=== PATIENT | male | born 1940 | race Caucasian/White ===

== ENCOUNTER 2018-09-09 10:59 | Inpatient (IN) ==
[2018-09-09] MEDS ORDERED: Sodium Chlor 0.9% Inj 500 ML IV.SIG SCH (12:00)
--- NOTE | 2018-09-09 12:21 | ED ---
HPI General Chief Complaint: Fall Stated Complaint: Dr sent/Fall Time Seen by Provider: 09/09/18 11:38 Source: patient and family Mode of arrival: wheelchair Limitations: physical limitation and other (Lewy body dementia, Parkinson's disease) History of Present Illness HPI Narrative: 78-year-old male presents to the emergency department at the recommendation of his primary care physician, Dr. Reed. Patient currently lives in a memory care unit at [facility]. She states that the facility staff saw that patient slid on the floor today after getting out of bed. They deny any significant trauma but states that patient was seen yesterday and treated for an elbow fracture. According to , Areli, she states that Dr. Mckeon recommended he come into the emergency department to determine what treatment should be done for his elbow as general anesthesia may not be an option secondary to his dementia and Parkinson's disease. Areli states that patient has an appointment to see Dr. Galvan, orthopedics tomorrow. Upon my evaluation, patient is not easily arousable but does not appear altered. Areli states that patient had a medication to help him sleep last night and he continues to be lethargic today but does not appear to be in distress according to her. She states that patient is also not complained of any other pain and says his pain is focused in his right elbow. MD complaint: Reports fall Onset (ago): minute(s) Fall from: standing and out of bed Fall witnessed: no Related Data Home Medications Medication Instructions Recorded Confirmed alfuzosin 10 mg PO DAILY 07/30/18 09/09/18 carbidopa-levodopa 1 tab PO DAILY 07/30/18 09/09/18 cyanocobalamin (vitamin B-12) 1 tab PO DAILY 07/30/18 09/09/18 [Vitamin B-12] furosemide 20 mg PO DAILY 07/30/18 09/09/18 glucosamine sulfate [Glucosamine] 2,000 mg PO DAILY 07/30/18 09/09/18 isosorbide dinitrate 1 tab PO BID 07/30/18 09/09/18 lamotrigine 200 mg PO DAILY 07/30/18 09/09/18 modafinil 200 mg PO DAILY 07/30/18 09/09/18 multivitamin with minerals 1 tab PO DAILY 07/30/18 09/09/18 omeprazole 40 mg PO DAILY 07/30/18 09/09/18 potassium chloride 10 meq PO DAILY 07/30/18 09/09/18 rivaroxaban [Xarelto] 20 mg PO QPM 07/30/18 09/09/18 rivastigmine 4.6 mg TRANSDERMAL DAILY 07/30/18 09/09/18 simvastatin 40 mg PO QPM 07/30/18 09/09/18 turmeric root extract 500 mg PO BID 07/30/18 09/09/18 quetiapine 100 mg PO DAILY 09/02/18 09/09/18 quetiapine 150 mg PO HS 09/02/18 09/09/18 ciprofloxacin HCl [Cipro] 500 mg PO BID 09/08/18 09/09/18 Allergies Allergy/AdvReac Type Severity Reaction Status Date / Time epinephrine Allergy Severe Respiratory Verified 09/08/18 12:21 Failure lidocaine Allergy Intermediate INCREASED Verified 09/08/18 12:21 HEART RATE Sulfa (Sulfonamide Allergy Unknown RASH Verified 09/08/18 12:21 Antibiotics) Review of Systems ROS: all other systems reviewed are negative [facility] Medical History Medical History Afib (Acute) CAD (coronary artery disease) (Acute) Epilepsy (Acute) GERD (gastroesophageal reflux disease) (Acute) Heart attack (Acute) Lewy body dementia (Acute) Parkinson disease (Acute) Sleep apnea (Acute) Surgical History Surgical History History of inguinal hernia repair (Acute) Stented coronary artery (Acute) Family History Family History Father Family history of hypertension Mother Family history of hypertension Mother Dementia Social History Social History Substance History: No History of Abuse Second Hand Smoke Exposure: No Smoking Status: Former smoker Tobacco Type: Cigarettes How Often Do You Have a Drink Containing Alcohol: Never Recent Travel in [place] within the Last 8 Weeks: No Recent Out of Country Travel within the Last 8 Weeks: No Immunization History Tetanus Immunization: Unsure Exam Narrative Exam Narrative: GENERAL: Well-developed, well-nourished in no acute distress, sleeping upon my evaluation SKIN: Focused skin assessment warm/dry. HEAD: Atraumatic. Normocephalic. EYES: Pupils equal and round. No scleral icterus. No injection or drainage. Ecchymosis present over the left orbit, presents yesterday after a fall according to ENT: No nasal bleeding or discharge. Mucous membranes pink and moist. NECK: Trachea midline. No JVD. No midline tenderness CARDIOVASCULAR: Regular rate and rhythm. No murmur appreciated. RESPIRATORY: No accessory muscle use. Clear to auscultation. Breath sounds equal bilaterally. GASTROINTESTINAL: Abdomen soft, non-tender, nondistended. Hepatic and splenic margins not palpable. MUSCULOSKELETAL: No obvious deformities. No clubbing. No cyanosis. No edema. No tenderness palpation of the pelvis, pelvis stable, no obvious trauma to the left upper extremity or bilateral lower extremities. Right upper extremity in splint (placed yesterday), cap refill less than 2 seconds right hand NEUROLOGICAL: Awake and alert. No obvious cranial nerve deficits. Motor grossly within normal limits. Normal speech. PSYCHIATRIC: Appropriate mood and affect; insight and judgment normal. Course Initial Documented Vital Signs Temperature 97.8 F 09/09/18 11:10 Pulse Rate 89 09/09/18 11:10 Respiratory Rate 16 09/09/18 11:10 Blood Pressure 94/55 L 09/09/18 11:10 Pulse Oximetry 94 L 09/09/18 11:10 Last Documented Vital Signs Temperature 97.8 F 09/09/18 11:10 Pulse Rate 86 09/09/18 16:44 Respiratory Rate 18 09/09/18 16:44 Blood Pressure 108/68 09/09/18 16:44 Pulse Oximetry 94 L 09/09/18 11:10 Medical Decision Making MDM Narrative Medical decision making narrative: 78-year-old male presents to the emergency department for evaluation at the recommendation of Dr. Reed, his primary care physician at his assisted living facility. He recommended patient come in as patient did have a another fall today and there was concern for repeated falls. states patient has not had his Xarelto in 2 days because of the repeated falls. He was diagnosed with a right elbow fracture yesterday and is due to be evaluated by Dr. Galvan tomorrow. There is concern for general anesthesia because of his Lewy body dementia and Parkinson's disease. Because of his unwitnessed fall, ordered repeat head CT and cervical spine CT. There is no evidence of trauma or pain elsewhere according to patient. Labs and imaging studies stable. Will Discuss this case with case management. Discussed with Case management, , and orthopedic physician. Dr. Galvan would like patient off of Xarelto for 5 days prior to performing surgery and probably perform next . states patient is due to have an appointment tomorrow with Dr. Galvan for consult. I spoke with Dr. Galvan regarding the plan to admit this patient for frequent falls and weakness and he said he would discuss this with his office staff and have them contact patient. I spoke with Dr. Rodriguez who agreed to the admission. Medical Screen Exam Complete: Yes Emergency Medical Condition: Yes Differential Diagnosis Differential Diagnosis: Right elbow fracture, fall, generalized weakness, deconditioning Lab Data Result diagrams: 09/09/18 12:10 09/09/18 12:10 Lab Results 09/09/18 09/09/18 09/09/18 Range/Units 12:10 12:10 12:10 WBC 6.7 (4.0-11.0) th/mm3 RBC 4.36 L (4.50-5.90) mil/mm3 Hgb 13.3 (13.0-17.0) gm/dL Hct 39.8 (39.0-51.0) % MCV 91.2 (80.0-100.0) fL MCH 30.5 (27.0-34.0) pg MCHC 33.4 (32.0-36.0) % RDW 13.8 (11.6-17.2) % Plt Count 121 L (150-450) th/mm3 MPV 6.7 L (7.0-11.0) fL Neut % (Auto) 68.8 (16.0-70.0) % Lymph % (Auto) 12.2 (9.0-44.0) % [place] % (Auto) 14.2 H (0.0-8.0) % Eos % (Auto) 4.4 H (0.0-4.0) % Baso % (Auto) 0.4 (0.0-2.0) % Neut # (Auto) 4.6 (1.8-7.7) th/mm3 Lymph # (Auto) 0.8 L (1.0-4.8) th/mm3 [place] # (Auto) 0.9 (0.0-0.9) th/mm3 Eos # (Auto) 0.3 (0.0-0.4) th/mm3 Baso # (Auto) 0.0 (0.0-0.2) th/mm3 WBC Differential . Differential Comment Auto diff final PT 12.9 H (9.8-11.6) sec INR 1.3 Ratio APTT 32.7 H (24.3-30.1) sec Sodium 143 (136-145) meq/L Potassium 3.6 (3.5-5.1) meq/L Chloride 106 (98-107) meq/L Carbon Dioxide 29.3 (21.0-32.0) meq/L Anion Gap 8 (5-15) meq/L BUN 19 H (7-18) mg/dL Creatinine 1.56 H (0.60-1.30) mg/dL Estimated GFR 43 L (>89) mL/min Random Glucose 128 H (74-106) mg/dL Calcium 8.7 (8.5-10.1) mg/dL Total Bilirubin 1.1 H (0.2-1.0) mg/dL AST 18 (15-37) U/L ALT 10 L (12-78) U/L Alkaline Phosphatase 95 (45-117) U/L Total Protein 7.2 (6.4-8.2) g/dL Albumin 3.6 (3.4-5.0) g/dL Urine Color (Yellw/Straw) Urine Clarity (Clear) Urine pH (5.0-8.5) Ur Specific [place] (1.002-1.035) Urine Protein (Neg-Trace) mg/dL Urine Glucose (UA) (Negative) mg/dL Urine Ketones (Negative) mg/dL Urine Occult Blood (Negative) Urine Nitrate (Negative) Urine Bilirubin (Negative) Urine Urobilinogen (Less than 2) mg/dL Ur Leukocyte Esterase (Negative) Urine WBC (0-5) /hpf Ur Squamous Epith Cells (0-5) /hpf Hyaline Casts (0-3) /lpf Urine Mucus (Occasional) /lpf Micro UA Comment Ur Microscopic Review Urine Culture Comments 09/09/18 Range/Units 15:45 WBC (4.0-11.0) th/mm3 RBC (4.50-5.90) mil/mm3 Hgb (13.0-17.0) gm/dL Hct (39.0-51.0) % MCV (80.0-100.0) fL MCH (27.0-34.0) pg MCHC (32.0-36.0) % RDW (11.6-17.2) % Plt Count (150-450) th/mm3 MPV (7.0-11.0) fL Neut % (Auto) (16.0-70.0) % Lymph % (Auto) (9.0-44.0) % [place] % (Auto) (0.0-8.0) % Eos % (Auto) (0.0-4.0) % Baso % (Auto) (0.0-2.0) % Neut # (Auto) (1.8-7.7) th/mm3 Lymph # (Auto) (1.0-4.8) th/mm3 [place] # (Auto) (0.0-0.9) th/mm3 Eos # (Auto) (0.0-0.4) th/mm3 Baso # (Auto) (0.0-0.2) th/mm3 WBC Differential Differential Comment PT (9.8-11.6) sec INR Ratio APTT (24.3-30.1) sec Sodium (136-145) meq/L Potassium (3.5-5.1) meq/L Chloride (98-107) meq/L Carbon Dioxide (21.0-32.0) meq/L Anion Gap (5-15) meq/L BUN (7-18) mg/dL Creatinine (0.60-1.30) mg/dL Estimated GFR (>89) mL/min Random Glucose (74-106) mg/dL Calcium (8.5-10.1) mg/dL Total Bilirubin (0.2-1.0) mg/dL AST (15-37) U/L ALT (12-78) U/L Alkaline Phosphatase (45-117) U/L Total Protein (6.4-8.2) g/dL Albumin (3.4-5.0) g/dL Urine Color Yellow (Yellw/Straw) Urine Clarity Hazy H (Clear) Urine pH 5.0 (5.0-8.5) Ur Specific [place] 1.018 (1.002-1.035) Urine Protein Negative (Neg-Trace) mg/dL Urine Glucose (UA) Negative (Negative) mg/dL Urine Ketones Negative (Negative) mg/dL Urine Occult Blood Negative (Negative) Urine Nitrate Negative (Negative) Urine Bilirubin Negative (Negative) Urine Urobilinogen Less than 2 (Less than 2) mg/dL Ur Leukocyte Esterase Negative (Negative) Urine WBC Less than 1 (0-5) /hpf Ur Squamous Epith Cells <1 (0-5) /hpf Hyaline Casts 4 (0-3) /lpf Urine Mucus Many H (Occasional) /lpf Micro UA Comment Cath-culture not ind Ur Microscopic Review Not Reportable Urine Culture Comments Cath-cult not ind Imaging Data Radiologist's impression: Cervical Spine CT 09/09/18 12:21 CONCLUSION: 1. No acute fracture or subluxation. 2. 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 3. Bulky carotid plaque. Head CT 09/09/18 12:21 CONCLUSION: 1. Stable senescent changes without acute intracranial abnormality. . Discharge Plan Discharge Disposition Patient Disposition: 30 Still Patient Discharge Condition Condition: Stable Discharge Details Diagnosis: Falls frequently, Weakness, Closed fracture of right elbow Physicians Team ED Provider: Titus Frankel ED Midlevel Provider: Noemi Pelayo Primary Care Provider: Deejay Mckeon Attending Provider: Itzel Rodriguez Other Providers: Felicia Smyth Status ED Status: Left Department Discharge Information Discharge Date/Time: 09/09/18 19:17
[2018-09-09 12:22] LABS: Baso % (Auto) 0.4 % (0.0-2.0); Eos # (Auto) 0.3 th/mm3 (0.0-0.4); Eos % (Auto) 4.4 % (0.0-4.0); Hematocrit 39.8 % (39.0-51.0); Hemoglobin 13.3 gm/dL (13.0-17.0); Lymph # (Auto) 0.8 th/mm3 (1.0-4.8); Lymph % (Auto) 12.2 % (9.0-44.0); Mean Corpuscular HGB Conc 33.4 % (32.0-36.0); Mean Corpuscular Hemoglobin 30.5 pg (27.0-34.0); Mean Corpuscular Volume 91.2 fL (80.0-100.0); Mean Platelet Volume 6.7 fL (7.0-11.0); Mono # (Auto) 0.9 th/mm3 (0.0-0.9); Mono % (Auto) 14.2 % (0.0-8.0); Neut # (Auto) 4.6 th/mm3 (1.8-7.7); Neut % (Auto) 68.8 % (16.0-70.0); Platelet Count 121 th/mm3 (150-450); Red Blood Count 4.36 mil/mm3 (4.50-5.90); Red Cell Distribution Width 13.8 % (11.6-17.2); White Blood Count 6.7 th/mm3 (4.0-11.0)
[2018-09-09 12:33] LABS: Activated Partial Thrombo Time 32.7 sec (24.3-30.1); INR 1.3 Ratio; Prothrombin Time 12.9 sec (9.8-11.6)
[2018-09-09 12:43] LABS: Albumin 3.6 g/dL (3.4-5.0); Anion Gap 8 meq/L (5-15); Aspartate Aminotransferase 18 U/L (15-37); Blood Urea Nitrogen 19 mg/dL (7-18); Calcium 8.7 mg/dL (8.5-10.1); Carbon Dioxide 29.3 meq/L (21.0-32.0); Chloride 106 meq/L (98-107); Glomerular Filtration Rate 43 mL/min (>89); Glucose,Random 128 mg/dL (74-106); Potassium 3.6 meq/L (3.5-5.1); Sodium 143 meq/L (136-145)
[2018-09-09 12:49] LABS: Alanine Aminotransferase 10 U/L (12-78); Alkaline Phosphatase 95 U/L (45-117); Total Protein 7.2 g/dL (6.4-8.2)
--- NOTE | 2018-09-09 14:13 | CT ---
EXAM DATE: 09/09/2018 1:42 PM EDT AGE/SEX: 78 years / Male INDICATIONS: Trauma, multiple falls. CLINICAL DATA: This is the patient's initial encounter. Patient reports that signs and symptoms have been present for 1 day and indicates a pain score of 0/10. MEDICAL/SURGICAL HISTORY: None. None. RADIATION DOSE: 41.25 CTDI (mGy) COMPARISON: [facility], CT HEAD W/O CONTRAST, 09/08/2018. . TECHNIQUE: CT of the head without contrast. Using automated exposure control and adjustment of the mA and/or kV according to patient size, radiation dose was kept as low as reasonably achievable to ob tain optimal diagnostic quality images. DICOM format image data is available electronically for revi ew and comparison. FINDINGS: Cerebrum: Moderate diffuse cerebral atrophy. The ventricles are normal for degree of atrophy. Mild p eriventricular white matter hypodensities. Small focal left subinsular hypodensity likely reflecting a remote lacunar infarct. No evidence of midline shift, mass lesion, hemorrhage or acute infarction. No extraaxial fluid collections are seen. Posterior Fossa: The cerebellum and brainstem are intact. The 4th ventricle is midline. The cerebe llopontine angle is unremarkable. Extracranial: The visualized portion of the orbits is intact. Skull: The calvaria is intact. No evidence of skull fracture. CONCLUSION: 1. Stable senescent changes without acute intracranial abnormality. . Electronically signed by: Boston Perla MD 09/09/2018 2:12 PM EDT
--- NOTE | 2018-09-09 14:15 | CT ---
EXAM DATE: 09/09/2018 1:57 PM EDT AGE/SEX: 78 years / Male INDICATIONS: Trauma, multiple falls. CLINICAL DATA: This is the patient's initial encounter. Patient reports that signs and symptoms have been present for 1 day and indicates a pain score of 0/10. MEDICAL/SURGICAL HISTORY: None. None. RADIATION DOSE: 23.20 CTDI (mGy) COMPARISON: [facility], CT CERVICAL SPINE W/O CONTRAST, 09/08/2018. . TECHNIQUE: Contiguous axial images were obtained using helical multirow detector technique. The vol umetric data was post-processed with multiplanar reconstruction in oblique axial, sagittal, and coron al planes. Using automated exposure control and adjustment of the mA and/or kV according to patient s ize, radiation dose was kept as low as reasonably achievable to obtain optimal diagnostic quality marylu ges. DICOM format image data is available electronically for review and comparison. FINDINGS: OSSEOUS STRUCTURES: Bony fusion of C2-3. Vertebral body heights are maintained. Osseous structures ar e intact without evidence for acute bony fracture. Dens is intact. ALIGNMENT: Sagittal alignment is maintained. There is a normal C1-2 relationship. Facets are normally aligned. SOFT TISSUES: There is no significant prevertebral soft tissue hematoma. No significant cervical mitchell opathy or gross mass. The thyroid appears unremarkable. Visualized lung apices are clear without pneu mothorax. Bulky carotid calcifications. ADDITIONAL FINDINGS: Advanced multilevel degenerative spondylosis most prominently at C5-6 and C6-7. Multilevel facet arthropathy. No significant bony neural foraminal or central canal narrowing. Multil evel facet arthrosis. CONCLUSION: 1. No acute fracture or subluxation. 2. 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 3. Bulky carotid plaque. Electronically signed by: Boston Perla MD 09/09/2018 2:14 PM EDT
[2018-09-09 16:24] LABS: Bilirubin,Urine Negative (Negative); Clarity,Urine Hazy (Clear); Color,Urine Yellow (Yellw/Straw); Glucose,Urine (UA) Negative (Negative); Hyaline Casts,Urine 4 /lpf (0-3); Leukocyte Esterase,Urine Negative (Negative); Mucus,Urine Many /lpf (Occasional); Nitrite,Urine Negative (Negative); Specific Gravity,Urine 1.018 (1.002-1.035); Squamous Epithelial Cell,Urine <1 /hpf (0-5)
[2018-09-09] MEDS ORDERED: Bisacodyl 10 MG Supp RECTAL PRN (17:22)
--- NOTE | 2018-09-09 17:23 | P.HPIM ---
History of Present Illness Primary Care Physician: Deejay Mckeon MD Chief Complaint: Right elbow pain History of Present Illness: 78-year-old pleasant male with a history of Lewy body dementia, Parkinson's who is currently residing in a dementia base of the assisted-living facility we presented back to the emergency room after sustaining another fall last night and this morning when he was seen in the emergency room yesterday for right elbow fracture. He was referred to Dr. Galvan, orthopedic surgery, for an appointment tomorrow and likely surgery next . He has been on Xarelto for his chronic atrial fibrillation but has been off of this for the past 2 days after the fall. His had stated that the staff at the assisted living facility is unable to care for him due to these recurrent falls and therefore brought him back to the emergency room for evaluation. His stated that his Parkinson dementia has been progressing over the past few months. Patient currently is pleasantly confused and states that other than the right elbow pain he has no other pain at this time. No complaints of palpitations or chest pains. Review of Systems unobtainable due to mental condition PMFSH - History History Provided By: Family Member - Medical History Medical History: Medical History (Last Reviewed 09/09/18 @ 16:53 by Itzel Rodriguez MD) Afib CAD (coronary artery disease) Epilepsy GERD (gastroesophageal reflux disease) Heart attack Lewy body dementia Parkinson disease Sleep apnea - Surgical History Surgical History: Surgical History (Last Updated 09/09/18 @ 16:54 by Itzel Rodriguez MD) History of inguinal hernia repair Stented coronary artery - Family History Family History: Family History (Last Updated 09/09/18 @ 16:58 by Itzel Rodriguez MD) Father Family history of hypertension Mother Family history of hypertension Mother Dementia - Social History I have reviewed the patient's Social History: Yes - Tobacco History Second Hand Smoke Exposure: No Smoking Status: Never smoker Tobacco Type: Cigarettes - Alcohol History How Often Do You Have a Drink Containing Alcohol: Never - Substance Use History Substance History: No History of Abuse - Travel History Recent Travel in the [place] Within the Last 8 Weeks: No Recent Travel Out of the Country Within the Last 8 Weeks: No - Immunization History Tetanus Immunization: Unsure Medications and Allergies Active Medications: Active Medications Sodium Chloride (Ns Inj) 500 mls @ 0 mls/hr IV.SIG BOLUS CARLOS Allergies Allergy/AdvReac Type Severity Reaction Status Date / Time epinephrine Allergy Severe Respiratory Verified 09/08/18 12:21 Failure lidocaine Allergy Intermediate INCREASED Verified 09/08/18 12:21 HEART RATE Sulfa (Sulfonamide Allergy Unknown RASH Verified 09/08/18 12:21 Antibiotics) Home Medications Medication Instructions Recorded Confirmed Type alfuzosin 10 mg PO DAILY 07/30/18 09/09/18 History carbidopa-levodopa 1 tab PO DAILY 07/30/18 09/09/18 History cyanocobalamin (vitamin B-12) 1 tab PO DAILY 07/30/18 09/09/18 History [Vitamin B-12] furosemide 20 mg PO DAILY 07/30/18 09/09/18 History glucosamine sulfate [Glucosamine] 2,000 mg PO DAILY 07/30/18 09/09/18 History isosorbide dinitrate 1 tab PO BID 07/30/18 09/09/18 History lamotrigine 200 mg PO DAILY 07/30/18 09/09/18 History modafinil 200 mg PO DAILY 07/30/18 09/09/18 History multivitamin with minerals 1 tab PO DAILY 07/30/18 09/09/18 History omeprazole 40 mg PO DAILY 07/30/18 09/09/18 History potassium chloride 10 meq PO DAILY 07/30/18 09/09/18 History rivaroxaban [Xarelto] 20 mg PO QPM 07/30/18 09/09/18 History rivastigmine 4.6 mg TRANSDERMAL DAILY 07/30/18 09/09/18 History simvastatin 40 mg PO QPM 07/30/18 09/09/18 History turmeric root extract 500 mg PO BID 07/30/18 09/09/18 History quetiapine 100 mg PO DAILY 09/02/18 09/09/18 History quetiapine 150 mg PO HS 09/02/18 09/09/18 History ciprofloxacin HCl [Cipro] 500 mg PO BID 09/08/18 09/09/18 History Exam Vital signs: Vital Signs 09/09/18 11:10 09/09/18 16:44 Temperature 97.8 F Pulse Rate 89 86 Respiratory Rate 16 18 Blood Pressure 94/55 L 108/68 Pulse Oximetry 94 L Intake & Output 09/08/18 09/09/18 09/09/18 18:59 06:59 18:59 Weight 104.326 kg Narrative: GENERAL: Well-nourished well-developed pleasant male in no acute distress SKIN: Warm and dry. Right periorbital ecchymosis HEAD: Atraumatic. Normocephalic. EYES: Pupils equal and round. No scleral icterus. No injection or drainage. ENT: No nasal bleeding or discharge. Mucous membranes pink and moist. NECK: Trachea midline. No JVD. CARDIOVASCULAR: Irregular rate and rhythm. RESPIRATORY: No accessory muscle use. Clear to auscultation. Breath sounds equal bilaterally. GASTROINTESTINAL: Abdomen soft, non-tender, nondistended. Hepatic and splenic margins not palpable. Normoactive bowel sounds MUSCULOSKELETAL: Extremities without clubbing, cyanosis, or edema. No obvious deformities. NEUROLOGICAL: Awake and alert to person and place only but not to time or situation. No obvious cranial nerve deficits. Motor grossly within normal limits. Five out of 5 muscle strength in the arms and legs. Mild muffled speech PSYCHIATRIC: Appropriate mood and affect; Results - Labs CBC & Chem 7: 09/09/18 12:10 09/09/18 12:10 Labs: Short CBC 09/09/18 Range/Units 12:10 WBC 6.7 (4.0-11.0) th/mm3 Hgb 13.3 (13.0-17.0) gm/dL Hct 39.8 (39.0-51.0) % Plt Count 121 L (150-450) th/mm3 BMP 09/09/18 12:10 Sodium 143 Potassium 3.6 Chloride 106 Carbon Dioxide 29.3 BUN 19 H Creatinine 1.56 H Calcium 8.7 Liver Function 09/09/18 Range/Units 12:10 Total Bilirubin 1.1 H (0.2-1.0) mg/dL AST 18 (15-37) U/L ALT 10 L (12-78) U/L Alkaline Phosphatase 95 (45-117) U/L Albumin 3.6 (3.4-5.0) g/dL Urine 09/09/18 Range/Units 15:45 Urine Color Yellow (Yellw/Straw) Urine Clarity Hazy H (Clear) Urine pH 5.0 (5.0-8.5) Ur Specific [place] 1.018 (1.002-1.035) Urine Protein Negative (Neg-Trace) mg/dL Urine Glucose (UA) Negative (Negative) mg/dL - Imaging Impressions Cervical Spine CT 09/09/18 12:21 CONCLUSION: 1. No acute fracture or subluxation. 2. 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 3. Bulky carotid plaque. Head CT 09/09/18 12:21 CONCLUSION: 1. Stable senescent changes without acute intracranial abnormality. . Caprini VTE Risk Assessment Caprini VTE Risk Assessment: Moderate/High Risk (score >= 2) Caprini Risk Assessment Model: Point Value = 1 Point Value = 2 Point Value = 3 Point Value = 5 Age 41-60 Minor surgery BMI > 25 kg/m2 Swollen legs Varicose veins or History of unexplained or recurrent spontaneous Oral contraceptives or hormone replacement Sepsis (< 1 month) Serious lung disease, including pneumonia (< 1 month) Abnormal pulmonary function Acute myocardial infarction Congestive heart failure (< 1 month) History of inflammatory bowel disease Medical patient at bed rest Age 61-74 Arthroscopic surgery Major open surgery (> 45 min) Laparoscopic surgery (> 45 min) Malignancy Confined to bed (> 72 hours) Immobilizing plaster cast Central venous access Age >= 75 History of VTE Family history of VTE Factor V Leiden Prothrombin [id number] Lupus anticoagulant Anticardiolipin antibodies Elevated serum homocysteine Heparin-induced thrombocytopenia Other congenital or acquired thrombophilia Stroke (< 1 month) Elective arthroplasty Hip, pelvis, or leg fracture Acute spinal cord injury (< 1 month) Prophylaxis Regimen: Total Risk Factor Score Risk Level Prophylaxis Regimen 0-1 Low Early ambulation 2 Moderate Order ONE of the following: *Sequential Compression Device (SCD) *Heparin 5000 units SQ BID 3-4 Higher Order ONE of the following medications: *Heparin 5000 units SQ TID *Enoxaparin/Lovenox 40 mg SQ daily (WT < 150 kg, CrCl > 30 mL/min) *Enoxaparin/Lovenox 30 mg SQ daily (WT < 150 kg, CrCl > 10-29 mL/min) *Enoxaparin/Lovenox 30 mg SQ BID (WT < 150 kg, CrCl > 30 mL/min) AND/OR *Sequential Compression Device (SCD) 5 or more Highest Order ONE of the following medications: *Heparin 5000 units SQ TID (Preferred with Epidurals) *Enoxaparin/Lovenox 40 mg SQ daily (WT < 150 kg, CrCl > 30 mL/min) *Enoxaparin/Lovenox 30 mg SQ daily (WT < 150 kg, CrCl > 10-29 mL/min) *Enoxaparin/Lovenox 30 mg SQ BID (WT < 150 kg, CrCl > 30 mL/min) AND *Sequential Compression Device (SCD) Assessment and Plan - Plan 78-year-old white male with a history of Lewy body dementia, Parkinson's, chronic atrial fibrillation on anticoagulation presented back to the emergency room for recurrent falls after sustaining a previous right elbow fracture. 1. Status post mechanical fall with displaced closed distal humerus fracture patient will need to be off the Xarelto 5 days prior to surgical intervention. Patient will be admitted for evaluation for medical clearance for surgical intervention. Anesthesia will be consulted to determine options other than general anesthesia due to history of progressing Lewy body dementia. Will consult Dr. Galvan for surgical intervention 2. Recurrent falls with a history of Parkinson's and dementia-physical therapy evaluation. CT of the brain showed no acute changes. Discuss with the at bedside who desires a DO NOT RESUSCITATE status. Due to progression of these chronic disease, she would like to consider transition the patient to hospice care after surgical intervention. 3. Chronic atrial fibrillation with a history of CADstop Xarelto for future surgical intervention. Discussed with due to his recurrent frequent falls , he is not a good candidate for restarting anticoagulation in the future. 4. Recent UTI diagnosed in the [facility] course 5. Acute kidney injury superimposed on chronic kidney disease stage IIthis is likely due to fall and will monitor BUN/creatinine, avoid nephrotoxins. Monitor closely on home diuretics. 4. DVT prophylaxisXarelto on hold due to pending surgery, SCDs. Code Status: DNR
[2018-09-09] MEDS ORDERED: Acetaminophen 325 MG Tablet PO PRN (17:25)
[2018-09-09] MEDS ORDERED: Naloxone Inj 0.4 MG/ML Vial IV.PUSH PRN (17:25)
[2018-09-10] MEDS: QUEtiapine 100 MG Tablet PO SCH ×3 (00:04→23:01)
[2018-09-10] MEDS: Ciprofloxacin 500 MG Tablet PO SCH ×3 (00:04→23:00)
[2018-09-10] MEDS: Senna/Docusate Sodium 8.6/50 MG Tablet PO SCH ×3 (00:10→23:00)
[2018-09-10] MEDS ORDERED: Metoprolol Tartrate 25 MG Tablet PO ONE (04:54)
[2018-09-10] MEDS ORDERED: Chlorhexidine Gluconate 2% 1 Pack (2 Cloths) TOPICAL ONE (04:54)
[2018-09-10] MEDS ORDERED: Sodium Chlor 0.9% Inj 500 ML IV.SIG SCH (05:00)
[2018-09-10 05:34] LABS: Calcium 8.5 mg/dL (8.5-10.1); Potassium 3.2 meq/L (3.5-5.1)
[2018-09-10] MEDS: Furosemide 20 MG Tablet PO SCH (08:53)
[2018-09-10] MEDS: lamoTRIgine 100 MG Tablet PO SCH (08:55)
[2018-09-10] MEDS: Potassium Chloride 10 MEQ ER Capsule PO SCH (08:56)
[2018-09-10] MEDS: Carbidopa/Levodopa CR 50/200 MG Tablet PO SCH (08:58)
--- NOTE | 2018-09-10 09:26 | P.PN ---
Subjective Interval history: Follow up on patient with Lewy body dementia, right elbow fracture, afib on anticoagulation with Xarelto. Patient seen and examined. Patient states his right elbow pain is controlled at present. He denies any fever or chills. He denies any cough, shortness of breath or chest pain. He denies any N/V or abdominal pain. Physical Exam Vital signs: Vital Signs 09/09/18 11:10 09/09/18 16:44 09/09/18 20:00 Temperature 97.8 F 98.8 F Pulse Rate 89 86 107 H Respiratory Rate 16 18 22 Blood Pressure 94/55 L 108/68 157/78 H Pulse Oximetry 94 L 93 L 09/09/18 21:15 09/10/18 00:00 09/10/18 01:30 Temperature 97.7 F Pulse Rate 98 H Respiratory Rate 22 20 17 Blood Pressure 106/75 Pulse Oximetry 93 L 09/10/18 04:00 09/10/18 08:00 Temperature 97.8 F 97.9 F Pulse Rate 105 H 104 H Respiratory Rate 21 21 Blood Pressure 107/73 126/65 Pulse Oximetry 94 L 95 Intake & Output 09/09/18 09/10/18 09/10/18 18:59 06:59 18:59 Intake Total 120 / 120 Output Total 450 / 450 Balance -330 / -330 Weight 104.326 kg 104.2 kg Intake: Oral 120 / 120 Output: Urine 450 / 450 Other: # Incontinent Voids 1 Date of Last Bowel Movement 09/08/18 Weight On Admission 104.326 kg Narrative: GENERAL: Well-nourished well-developed elderly male in no acute distress. Awake and alert. Pleasantly confused. SKIN: Warm and dry. Right periorbital ecchymosis noted. HEAD: Normocephalic. EYES: Pupils equal and round. No scleral icterus. No injection or drainage. ENT: No nasal bleeding or discharge. Mucous membranes pink and moist. NECK: Trachea midline. CARDIOVASCULAR: Irregular rate and rhythm. No murmur auscultated. RESPIRATORY: No accessory muscle use. Clear to auscultation. Breath sounds equal bilaterally. GASTROINTESTINAL: Abdomen soft, non-tender, nondistended. Normoactive bowel sounds. MUSCULOSKELETAL: Extremities without clubbing, cyanosis, or edema. Right arm in splint, NV intact distally. NEUROLOGICAL: Awake and alert. Oriented to self. No obvious cranial nerve deficits. Motor grossly within normal limits except for decreased RUE secondary to injury. Normal speech. PSYCHIATRIC: Calm and cooperative. Results - Labs CBC & Chem 7: 09/09/18 12:10 09/10/18 04:19 Laboratory Results - last 24 hr 09/09/18 09/09/18 09/09/18 12:10 12:10 12:10 WBC 6.7 RBC 4.36 L Hgb 13.3 Hct 39.8 MCV 91.2 MCH 30.5 MCHC 33.4 RDW 13.8 Plt Count 121 L MPV 6.7 L Neut % (Auto) 68.8 Lymph % (Auto) 12.2 Long % (Auto) 14.2 H Eos % (Auto) 4.4 H Baso % (Auto) 0.4 Neut # (Auto) 4.6 Lymph # (Auto) 0.8 L Long # (Auto) 0.9 Eos # (Auto) 0.3 Baso # (Auto) 0.0 WBC Differential . Differential Comment Auto diff final PT 12.9 H INR 1.3 APTT 32.7 H Sodium 143 Potassium 3.6 Chloride 106 Carbon Dioxide 29.3 Anion Gap 8 BUN 19 H Creatinine 1.56 H Estimated GFR 43 L Random Glucose 128 H Calcium 8.7 Total Bilirubin 1.1 H AST 18 ALT 10 L Alkaline Phosphatase 95 Total Protein 7.2 Albumin 3.6 Urine Color Urine Clarity Urine pH Ur Specific [place] Urine Protein Urine Glucose (UA) Urine Ketones Urine Occult Blood Urine Nitrate Urine Bilirubin Urine Urobilinogen Ur Leukocyte Esterase Urine WBC Ur Squamous Epith Cells Hyaline Casts Urine Mucus Micro UA Comment Ur Microscopic Review Urine Culture Comments 09/09/18 09/10/18 15:45 04:19 WBC RBC Hgb Hct MCV MCH MCHC RDW Plt Count MPV Neut % (Auto) Lymph % (Auto) Long % (Auto) Eos % (Auto) Baso % (Auto) Neut # (Auto) Lymph # (Auto) Long # (Auto) Eos # (Auto) Baso # (Auto) WBC Differential Differential Comment PT INR APTT Sodium 142 Potassium 3.2 L Chloride 105 Carbon Dioxide 27.0 Anion Gap 10 BUN 16 Creatinine 1.32 H Estimated GFR 53 L Random Glucose 104 Calcium 8.5 Total Bilirubin AST ALT Alkaline Phosphatase Total Protein Albumin Urine Color Yellow Urine Clarity Hazy H Urine pH 5.0 Ur Specific [place] 1.018 Urine Protein Negative Urine Glucose (UA) Negative Urine Ketones Negative Urine Occult Blood Negative Urine Nitrate Negative Urine Bilirubin Negative Urine Urobilinogen Less than 2 Ur Leukocyte Esterase Negative Urine WBC Less than 1 Ur Squamous Epith Cells <1 Hyaline Casts 4 Urine Mucus Many H Micro UA Comment Cath-culture not ind Ur Microscopic Review Not Reportable Urine Culture Comments Cath-cult not ind - Imaging Impressions Cervical Spine CT 09/09/18 12:21 CONCLUSION: 1. No acute fracture or subluxation. 2. 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 3. Bulky carotid plaque. Head CT 09/09/18 12:21 CONCLUSION: 1. Stable senescent changes without acute intracranial abnormality. . Assessment and Plan - Plan 78-year-old white male with a history of Lewy body dementia, Parkinson's, chronic atrial fibrillation on anticoagulation presented back to the emergency room for recurrent falls after sustaining a previous right elbow fracture. Status post mechanical fall with right comminuted closed distal humerus fracture patient will need to be off the Xarelto 5 days prior to surgical intervention. -Ortho consulted, appreciate assistance -continue splint and NWB RUE -continue pain management with bowel regimen -fall precautions Recurrent falls with a history of Parkinson's and dementia CT of the brain showed no acute changes. Discuss with the at bedside who desires a DO NOT RESUSCITATE status. Due to progression of these chronic disease, she would like to consider transition the patient to hospice care after surgical intervention. -PT/OT eval/tx -continue on Exelon patch and Sinemet Chronic atrial fibrillation with a history of CAD HTN stop Xarelto for future surgical intervention. -previous hospitalist discussed with due to his recurrent frequent falls, he is not a good candidate for restarting anticoagulation in the future. -continue on Isordil -monitor heart rate Recent UTI diagnosed in the [facility] complete Cipro course Acute kidney injury superimposed on chronic kidney disease stage IIthis is likely due to fall -will monitor BUN/creatinine. Cr improved today from 1.56 to 1.32 (previous creatinine in the system 1.10 09/02/18) -avoid nephrotoxins -Monitor closely on home diuretics. Hypokalemia K 3.2 -on daily repletion KCL 10meq daily, continue -po repletion ordered -repeat BMP in am to monitor response DVT prophylaxis Xarelto on hold due to pending surgery, SCDs. Code Status: DNR Discussed Condition With: patient, nursing staff, Dr. Guy Discharge Planning: Not ready for discharge
[2018-09-10] MEDS: Multivitamin/Minerals Therapeutic Tablet PO SCH (10:33)
[2018-09-10] MEDS: Haloperidol Inj 5 MG/ML Ampul IV.PUSH PRN ×2 (13:01→23:23)
[2018-09-11] MEDS: Haloperidol Inj 5 MG/ML Ampul IV.PUSH PRN (06:06)
[2018-09-11] MEDS: QUEtiapine 100 MG Tablet PO SCH (09:47)
[2018-09-11] MEDS: Ciprofloxacin 500 MG Tablet PO SCH (09:47)
[2018-09-11] MEDS: Carbidopa/Levodopa CR 50/200 MG Tablet PO SCH (09:48)
[2018-09-11] MEDS: Furosemide 20 MG Tablet PO SCH (09:48)
[2018-09-11] MEDS: lamoTRIgine 100 MG Tablet PO SCH (09:49)
[2018-09-11] MEDS: Potassium Chloride 10 MEQ ER Capsule PO SCH (09:49)
[2018-09-11] MEDS: Senna/Docusate Sodium 8.6/50 MG Tablet PO SCH (09:50)
[2018-09-11] MEDS: Multivitamin/Minerals Therapeutic Tablet PO SCH (09:51)
--- NOTE | 2018-09-11 14:19 | P.PN ---
Subjective Interval history: Follow up for Lewy body dementia, right elbow fracture, atrial fibrillation. Patient is resting in bed. Right upper ext sling in place. No acute concerns. Currently requiring soft restraints. Afebrile. Physical Exam Vital signs: Vital Signs 09/10/18 16:00 09/10/18 19:25 09/10/18 20:00 Temperature 98.6 F 97.6 F Pulse Rate 106 H 97 H Respiratory Rate 20 17 18 Blood Pressure 109/60 106/61 Pulse Oximetry 92 L 94 L 09/11/18 00:30 09/11/18 05:00 09/11/18 08:00 Temperature 97.3 F L Pulse Rate 96 H Respiratory Rate 20 20 14 Blood Pressure 111/65 Pulse Oximetry 92 L 09/11/18 10:15 09/11/18 12:00 Temperature 97.6 F Pulse Rate 109 H Respiratory Rate 18 16 Blood Pressure 108/67 Pulse Oximetry 93 L Intake & Output 09/10/18 09/11/18 09/11/18 18:59 06:59 18:59 Intake Total 120 / 120 Output Total 100 / 100 Balance Weight 104.3 kg Intake: Oral 120 / 120 Output: Urine 100 / 100 Other: # Incontinent Voids 3 Date of Last Bowel Movement 09/08/18 Narrative: GENERAL: Well-nourished well-developed elderly male in no acute distress. Awake and alert. Pleasantly confused. SKIN: Warm and dry. Right periorbital ecchymosis noted. HEAD: Normocephalic. EYES: Pupils equal and round. No scleral icterus. No injection or drainage. ENT: No nasal bleeding or discharge. Mucous membranes pink and moist. NECK: Trachea midline. CARDIOVASCULAR: Irregular rate and rhythm. No murmur auscultated. RESPIRATORY: No accessory muscle use. Clear to auscultation. Breath sounds equal bilaterally. GASTROINTESTINAL: Abdomen soft, non-tender, nondistended. Normoactive bowel sounds. MUSCULOSKELETAL: Extremities without clubbing, cyanosis, or edema. Right arm in splint, NV intact distally. NEUROLOGICAL: Awake and alert. Oriented to self. No obvious cranial nerve deficits. Motor grossly within normal limits except for decreased RUE secondary to injury. Normal speech. PSYCHIATRIC: Calm and cooperative. Results - Labs CBC & Chem 7: 09/09/18 12:10 09/10/18 04:19 Assessment and Plan - Plan 78-year-old white male with a history of Lewy body dementia, Parkinson's, chronic atrial fibrillation on anticoagulation presented back to the emergency room for recurrent falls after sustaining a previous right elbow fracture. Status post mechanical fall with right comminuted closed distal humerus fracture patient will need to be off the Xarelto 5 days prior to surgical intervention. -Ortho consulted, appreciate assistance -continue splint and NWB RUE -continue pain management with bowel regimen -fall precautions -Probable surgery on 09/16/2018 (). Recurrent falls with a history of Parkinson's and dementia CT of the brain showed no acute changes. Discuss with the at bedside who desires a DO NOT RESUSCITATE status. Due to progression of these chronic disease, she would like to consider transition the patient to hospice care after surgical intervention. -PT/OT eval/tx -continue on Exelon patch and Sinemet Chronic atrial fibrillation Hx of CAD HTN stop Xarelto for future surgical intervention. -continue on Isosorbide dinitrate. Recent UTI diagnosed in the [facility] complete Cipro course Acute kidney injury superimposed on chronic kidney disease stage IIthis is likely due to fall -will monitor BUN/creatinine. Cr improved today from 1.56 to 1.32 (previous creatinine in the system 1.10 09/02/18) -avoid nephrotoxins Hypokalemia K 3.2 -on daily repletion KCL 10meq daily, continue -po repletion ordered DNR. SCDs. Xarelto on hold due to anticipated surgery on 09/16/2018.
[2018-09-11 17:46] LABS: Calcium 8.7 mg/dL (8.5-10.1); Carbon Dioxide 27.8 meq/L (21.0-32.0); Potassium 3.4 meq/L (3.5-5.1)
[2018-09-12] MEDS: Ciprofloxacin 500 MG Tablet PO SCH ×3 (01:05→20:40)
[2018-09-12] MEDS: Senna/Docusate Sodium 8.6/50 MG Tablet PO SCH ×3 (01:05→20:40)
[2018-09-12] MEDS: QUEtiapine 100 MG Tablet PO SCH ×3 (01:05→20:40)
[2018-09-12] MEDS: Furosemide 20 MG Tablet PO SCH (09:49)
[2018-09-12] MEDS: Carbidopa/Levodopa CR 50/200 MG Tablet PO SCH (09:49)
[2018-09-12] MEDS: Multivitamin/Minerals Therapeutic Tablet PO SCH (09:49)
[2018-09-12] MEDS: Potassium Chloride 10 MEQ ER Capsule PO SCH (09:49)
[2018-09-12] MEDS: lamoTRIgine 100 MG Tablet PO SCH (09:50)
--- NOTE | 2018-09-12 10:20 | P.PN ---
Subjective Interval history: Follow up for Lewy body dementia, right elbow fracture, atrial fibrillation. Patient is sitting in his chair near the nurse's station. Remains somewhat confused. No acute concerns. Worked with PT earlier. Physical Exam Vital signs: Vital Signs 09/11/18 12:00 09/11/18 16:00 09/11/18 20:00 Temperature 97.6 F 98.3 F 97.5 F L Pulse Rate 109 H 97 H 92 H Respiratory Rate 16 16 18 Blood Pressure 108/67 106/60 115/72 Pulse Oximetry 93 L 92 L 93 L 09/11/18 23:30 09/12/18 00:00 09/12/18 04:00 Temperature 99.6 F Pulse Rate 110 H 95 H Respiratory Rate 17 18 18 Blood Pressure 142/77 H 121/67 Pulse Oximetry 93 L 09/12/18 08:00 Temperature 97.1 F L Pulse Rate 62 Respiratory Rate 14 Blood Pressure 110/66 Pulse Oximetry 91 L Intake & Output 09/11/18 09/12/18 09/12/18 18:59 06:59 18:59 Intake Total 200 / 200 Balance 200 / 200 Weight 104.3 kg Intake: Oral 200 / 200 Other: # Voids 3 Date of Last Bowel Movement 09/08/18 Narrative: GENERAL: Well-nourished well-developed elderly male in no acute distress. Awake and alert. Pleasantly confused. SKIN: Warm and dry. Right periorbital ecchymosis noted. HEAD: Normocephalic. EYES: Pupils equal and round. No scleral icterus. No injection or drainage. ENT: No nasal bleeding or discharge. Mucous membranes pink and moist. NECK: Trachea midline. CARDIOVASCULAR: Irregular rate and rhythm. No murmur auscultated. RESPIRATORY: No accessory muscle use. Clear to auscultation. Breath sounds equal bilaterally. GASTROINTESTINAL: Abdomen soft, non-tender, nondistended. Normoactive bowel sounds. MUSCULOSKELETAL: Extremities without clubbing, cyanosis, or edema. Right arm in splint, NV intact distally. NEUROLOGICAL: Awake and alert. Oriented to self. No obvious cranial nerve deficits. Motor grossly within normal limits except for decreased RUE secondary to injury. Normal speech. PSYCHIATRIC: Calm and cooperative. Results - Labs CBC & Chem 7: 09/09/18 12:10 09/11/18 17:06 Laboratory Results - last 24 hr 09/11/18 17:06 Sodium 141 Potassium 3.4 L Chloride 104 Carbon Dioxide 27.8 Anion Gap 9 BUN 17 Creatinine 1.35 H Estimated GFR 51 L Random Glucose 124 H Calcium 8.7 Assessment and Plan - Plan 78-year-old white male with a history of Lewy body dementia, Parkinson's, chronic atrial fibrillation on anticoagulation presented back to the emergency room for recurrent falls after sustaining a previous right elbow fracture. Status post mechanical fall with right comminuted closed distal humerus fracture patient will need to be off the Xarelto 5 days prior to surgical intervention. -Ortho consulted, appreciate assistance -continue splint and NWB RUE -continue pain management with bowel regimen -fall precautions -Probable surgery on 09/16/2018 (). Recurrent falls with a history of Parkinson's and dementia CT of the brain showed no acute changes. Discuss with the at bedside who desires a DO NOT RESUSCITATE status. Due to progression of these chronic disease, she would like to consider transition the patient to hospice care after surgical intervention. -PT/OT eval/tx -continue on Exelon patch and Sinemet Chronic atrial fibrillation Hx of CAD HTN stop Xarelto for future surgical intervention. -continue on Isosorbide dinitrate. Recent UTI diagnosed in the [facility] complete Cipro course Acute kidney injury superimposed on chronic kidney disease stage IIthis is likely due to fall -will monitor BUN/creatinine. Cr improved today from 1.56 to 1.32 (previous creatinine in the system 1.10 09/02/18) -avoid nephrotoxins Hypokalemia K 3.2 -on daily repletion KCL 10meq daily, continue -po repletion ordered DNR. SCDs. Xarelto on hold due to anticipated surgery on 09/16/2018. 09/12/2018: No acute changes in management.
[2018-09-13] MEDS: Ciprofloxacin 500 MG Tablet PO SCH ×2 (11:43→23:25)
[2018-09-13] MEDS: Carbidopa/Levodopa CR 50/200 MG Tablet PO SCH (11:43)
[2018-09-13] MEDS: Furosemide 20 MG Tablet PO SCH (11:43)
[2018-09-13] MEDS: Potassium Chloride 10 MEQ ER Capsule PO SCH (11:57)
[2018-09-13] MEDS: Senna/Docusate Sodium 8.6/50 MG Tablet PO SCH ×2 (11:58→22:00)
[2018-09-13] MEDS: lamoTRIgine 100 MG Tablet PO SCH (11:58)
[2018-09-13] MEDS: QUEtiapine 100 MG Tablet PO SCH (11:59)
[2018-09-13] MEDS: Multivitamin/Minerals Therapeutic Tablet PO SCH (11:59)
--- NOTE | 2018-09-13 17:33 | P.PN ---
Subjective Interval history: Follow up for Lewy body dementia, right elbow fracture, atrial fibrillation. Patient is currently sitting in his chair. Family members at bedside. No acute concerns. Physical Exam Vital signs: Vital Signs 09/12/18 20:00 09/13/18 00:00 09/13/18 04:00 Temperature 98.8 F 98.2 F 97.1 F L Pulse Rate 105 H 98 H 108 H Respiratory Rate 18 18 18 Blood Pressure 134/84 115/67 113/62 Pulse Oximetry 95 93 L 93 L 09/13/18 08:00 09/13/18 12:00 Temperature 98.2 F 97.1 F L Pulse Rate 93 H 90 Respiratory Rate 18 20 Blood Pressure 124/64 148/98 H Pulse Oximetry 93 L 93 L Intake & Output 09/12/18 09/13/18 09/13/18 18:59 06:59 18:59 Intake Total 150 / 150 Balance 150 / 150 Weight 98.5 kg Intake: Oral 150 / 150 Other: # Voids 2 Date of Last Bowel Movement 09/08/18 09/10/18 Narrative: GENERAL: Well-nourished well-developed elderly male in no acute distress. Awake and alert. Pleasantly confused. SKIN: Warm and dry. Right periorbital ecchymosis noted. HEAD: Normocephalic. EYES: Pupils equal and round. No scleral icterus. No injection or drainage. ENT: No nasal bleeding or discharge. Mucous membranes pink and moist. NECK: Trachea midline. CARDIOVASCULAR: Irregular rate and rhythm. No murmur auscultated. RESPIRATORY: No accessory muscle use. Clear to auscultation. Breath sounds equal bilaterally. GASTROINTESTINAL: Abdomen soft, non-tender, nondistended. Normoactive bowel sounds. MUSCULOSKELETAL: Extremities without clubbing, cyanosis, or edema. Right arm in splint, NV intact distally. NEUROLOGICAL: Awake and alert. Oriented to self. No obvious cranial nerve deficits. Motor grossly within normal limits except for decreased RUE secondary to injury. Normal speech. PSYCHIATRIC: Calm and cooperative. Results - Labs CBC & Chem 7: 09/09/18 12:10 09/11/18 17:06 Assessment and Plan - Plan 78-year-old white male with a history of Lewy body dementia, Parkinson's, chronic atrial fibrillation on anticoagulation presented back to the emergency room for recurrent falls after sustaining a previous right elbow fracture. Status post mechanical fall with right comminuted closed distal humerus fracture patient will need to be off the Xarelto 5 days prior to surgical intervention. -Ortho consulted, appreciate assistance -continue splint and NWB RUE -continue pain management with bowel regimen -fall precautions -Probable surgery on 09/16/2018 (). Recurrent falls with a history of Parkinson's and dementia CT of the brain showed no acute changes. Discuss with the at bedside who desires a DO NOT RESUSCITATE status. Due to progression of these chronic disease, she would like to consider transition the patient to hospice care after surgical intervention. -PT/OT eval/tx -continue on Exelon patch and Sinemet Chronic atrial fibrillation Hx of CAD HTN stop Xarelto for future surgical intervention. -continue on Isosorbide dinitrate. Recent UTI diagnosed in the [facility] complete Cipro course Acute kidney injury superimposed on chronic kidney disease stage IIthis is likely due to fall -will monitor BUN/creatinine. Cr improved today from 1.56 to 1.32 (previous creatinine in the system 1.10 09/02/18) -avoid nephrotoxins Hypokalemia K 3.2 -on daily repletion KCL 10meq daily, continue -po repletion ordered DNR. SCDs. Xarelto on hold due to anticipated surgery on 09/16/2018. 09/13/2018: No acute changes in management.
[2018-09-14] MEDS: QUEtiapine 100 MG Tablet PO SCH ×3 (01:57→21:40)
--- NOTE | 2018-09-14 07:02 | P.CONOP ---
HPI Orthopedics Consult Note - HPI Consult date: 09/13/18 Consult reason: fracture Chief complaint: frequent falls, weakness Narrative: 78-year-old gentleman with history of Lewy body dementia, Parkinson's disease, atrial fibrillation, chronic kidney disease Presented to [facility] emergency department on September 09 after having sustained a mechanical fall resulting in a right distal humerus fracture. He was subsequently discharged and then re- presented to the hospital the next day with a recurrent fall and has since been admitted to the inpatient facility. At bedside this evening, no family is present. The patient is resting comfortably. HPI is limited secondary to patient's mental status Review of Systems unobtainable due to mental condition PMFSH - History History Provided By: Family Member, Significant Other - Medical History Medical History: Medical History (Last Reviewed 09/13/18 @ 09:15 by Karina Dutta) Afib CAD (coronary artery disease) Epilepsy GERD (gastroesophageal reflux disease) Heart attack Lewy body dementia Parkinson disease Sleep apnea - Surgical History Surgical History: Surgical History (Last Reviewed 09/13/18 @ 09:15 by Kraina Dutta) History of inguinal hernia repair Stented coronary artery - Family History Family History: Family History (Last Reviewed 09/13/18 @ 08:52 by Brandy Armendariz) Father Family history of hypertension Mother Family history of hypertension Mother Dementia - Tobacco History Second Hand Smoke Exposure: No Tobacco Use In Past 30 Days: No Smoking Status: Former smoker Tobacco Type: Cigarettes - Alcohol History How Often Do You Have a Drink Containing Alcohol: Never - Substance Use History Substance History: No History of Abuse - Travel History Recent Travel in the [place] Within the Last 8 Weeks: No Recent Travel Out of the Country Within the Last 8 Weeks: No - Immunization History Tetanus Immunization: Unsure Hx Influenza Vaccine This Season: Yes Medications and Allergies Active Medications: Active Medications Acetaminophen (Tylenol) 650 mg PO Q6HR PRN PRN Reason: PAIN SCALE 1 TO 2 Hydrocodone Bitart/Acetaminophen (Catron 5/325) 1 tab PO Q4H PRN PRN Reason: PAIN SCALE 3 TO 5 Last Admin: 09/12/18 13:15 Dose: 1 tab Hydrocodone Bitart/Acetaminophen (Catron 7.5/325) 1 tab PO Q4H PRN PRN Reason: PAIN SCALE 6 TO 10 Last Admin: 09/12/18 01:06 Dose: 1 tab Al Hydroxide/Mg Hydroxide (Milk Of Magnesia Liq) 30 ml PO Q12H PRN PRN Reason: Mild Constipation Bisacodyl (Dulcolax Supp) 10 mg RECTAL DAILY PRN PRN Reason: SEVERE CONSITIPATION Carbidopa/Levodopa (Sinemet Cr 50/200 Mg) 1 tab PO DAILY [facility] Last Admin: 09/13/18 11:43 Dose: 1 tab Ciprofloxacin HCl (Cipro) 500 mg PO BID [facility] Last Admin: 09/13/18 23:25 Dose: 500 mg Cyanocobalamin (Vitamin B12) 1,000 mcg PO DAILY [facility] Last Admin: 09/13/18 11:59 Dose: Not Given Furosemide (Lasix) 20 mg PO DAILY [facility] Last Admin: 09/13/18 11:43 Dose: 20 mg Haloperidol Lactate (Haldol Inj) 2 mg IV.PUSH Q6H PRN PRN Reason: agitation Last Admin: 09/11/18 06:06 Dose: 2 mg Sodium Chloride (Ns Inj) 500 mls @ 0 mls/hr IV.SIG BOLUS [facility] Sodium Chloride (Ns Inj) 500 mls @ 30 mls/hr IV.SIG .Q10H [facility] Last Admin: 09/10/18 23:02 Dose: Not Given Isosorbide Dinitrate (Isordil) 20 mg PO BID [facility] Last Admin: 09/13/18 23:25 Dose: 20 mg Lactulose (Lactulose Liq) 30 ml PO DAILY PRN PRN Reason: SEVERE CONSITIPATION Lamotrigine (Lamictal) 200 mg PO DAILY [facility] Last Admin: 09/13/18 11:58 Dose: Not Given Miscellaneous (Pill Splitter) 1 each OTHER UNSCH PRN PRN Reason: SEE LABEL COMMENT Multivitamins/Minerals (Theragran-M) 1 tab PO DAILY [facility] Last Admin: 09/13/18 11:59 Dose: Not Given Naloxone HCl (Narcan Inj) 0.4 mg IV.PUSH UNSCH PRN PRN Reason: SEE LABEL COMMENTS Ondansetron HCl (Zofran Inj) 4 mg IV.PUSH Q6H PRN PRN Reason: NAUSEA OR VOMITING Pantoprazole Sodium (Protonix) 40 mg PO DAILY [facility] Last Admin: 09/13/18 11:58 Dose: Not Given Potassium Chloride (Kcl) 10 meq PO DAILY [facility] Last Admin: 09/13/18 11:57 Dose: Not Given Pravastatin Sodium (Pravachol) 80 mg PO QPM [facility] Last Admin: 09/13/18 18:38 Dose: Not Given Quetiapine Fumarate (Seroquel) 100 mg PO DAILY [facility] Last Admin: 09/13/18 11:59 Dose: Not Given Quetiapine Fumarate (Seroquel) 150 mg PO HS [facility] Last Admin: 09/14/18 01:57 Dose: 150 mg Rivastigmine (Exelon 4.6 Mg Patch.24hr) 1 patch T-DERMAL DAILY [facility] Last Admin: 09/13/18 11:46 Dose: 1 patch Senna/Docusate Sodium (Mariposa-Colace) 1 tab PO BID [facility] Last Admin: 09/13/18 22:00 Dose: 1 tab Sennosides (Senokot) 17.2 mg PO Q12H PRN PRN Reason: Moderate Constipation Sodium Chloride (Ns Flush) 2 ml IV.FLUSH PRN PRN PRN Reason: FLUSH AFTER USING IV ACCESS Sodium Chloride (Ns Flush) 2 ml IV.FLUSH BID [facility] Last Admin: 09/13/18 23:25 Dose: 2 ml Sodium Chloride (Ns Flush) 2 ml IV.FLUSH PRN PRN PRN Reason: FLUSH AFTER USING IV ACCESS Tamsulosin HCl (Flomax) 0.4 mg PO DAILY [facility] Last Admin: 09/13/18 11:43 Dose: 0.4 mg Allergies Allergy/AdvReac Type Severity Reaction Status Date / Time epinephrine Allergy Severe Respiratory Verified 09/08/18 12:21 Failure lidocaine Allergy Intermediate INCREASED Verified 09/08/18 12:21 HEART RATE Sulfa (Sulfonamide Allergy Unknown RASH Verified 09/08/18 12:21 Antibiotics) Home Medications Medication Instructions Recorded Confirmed Type alfuzosin 10 mg PO DAILY 07/30/18 09/09/18 History carbidopa-levodopa 1 tab PO DAILY 07/30/18 09/09/18 History cyanocobalamin (vitamin B-12) 1 tab PO DAILY 07/30/18 09/09/18 History [Vitamin B-12] furosemide 20 mg PO DAILY 07/30/18 09/09/18 History glucosamine sulfate [Glucosamine] 2,000 mg PO DAILY 07/30/18 09/09/18 History isosorbide dinitrate 1 tab PO BID 07/30/18 09/09/18 History lamotrigine 200 mg PO DAILY 07/30/18 09/09/18 History modafinil 200 mg PO DAILY 07/30/18 09/09/18 History multivitamin with minerals 1 tab PO DAILY 07/30/18 09/09/18 History omeprazole 40 mg PO DAILY 07/30/18 09/09/18 History potassium chloride 10 meq PO DAILY 07/30/18 09/09/18 History rivaroxaban [Xarelto] 20 mg PO QPM 07/30/18 09/09/18 History rivastigmine 4.6 mg TRANSDERMAL DAILY 07/30/18 09/09/18 History simvastatin 40 mg PO QPM 07/30/18 09/09/18 History turmeric root extract 500 mg PO BID 07/30/18 09/09/18 History quetiapine 100 mg PO DAILY 09/02/18 09/09/18 History quetiapine 150 mg PO HS 09/02/18 09/09/18 History ciprofloxacin HCl [Cipro] 500 mg PO BID 09/08/18 09/09/18 History Exam Vital signs: Vital Signs 09/13/18 08:00 09/13/18 12:00 09/13/18 16:00 Temperature 98.2 F 97.1 F L 99.2 F Pulse Rate 93 H 90 99 H Respiratory Rate 18 20 18 Blood Pressure 124/64 148/98 H 132/79 Pulse Oximetry 93 L 93 L 92 L 09/13/18 20:50 09/13/18 23:23 09/14/18 05:00 Temperature 98.0 F 98.0 F 97.6 F Pulse Rate 111 H 105 H 107 H Respiratory Rate 19 20 20 Blood Pressure 88/50 L 122/74 108/64 Pulse Oximetry 94 L 96 Intake & Output 09/13/18 09/13/18 09/14/18 06:59 18:59 06:59 Intake Total 150 / 150 120 / 120 240 / 240 Output Total 250 / 250 Balance 150 / 150 120 / 120 - Weight 98.5 kg 103.8 kg Intake: Oral 150 / 150 120 / 120 240 / 240 Output: Urine 250 / 250 Other: # Voids 2 # Incontinent Voids 3 2 Date of Last Bowel Movement 09/08/18 09/10/18 09/10/18 - Constitutional no acute distress, morbidly obese - Routine HEENT Exam Head: Present: normocephalic, atraumatic, tenderness of temporal artery - Routine Respiratory Exam Absent: accessory muscle use - Routine Cardiovascular Exam Comments: Atrial fibrillation - Routine Extremities Exam Comments: Focused evaluation of the right upper extremity which rates long arm splint intact. Fingers are exposed. Positive EPL/FPL/FDP/FDS/EDC. Sensation is intact to the median, radial, ulnar nerve distribution. There is brisk cap refill less than 2 seconds to the exposed digits. - Routine Skin Exam Present: intact - Routine Neurological Exam Present: alert. Absent: oriented X3 Results - Labs Result Diagrams: 09/09/18 12:10 09/11/18 17:06 Assessment and Plan - Assessment and Plan 78-year-old gentleman with history of Parkinson's disease, Lewy body dementia, atrial fibrillation, kidney disease Presents with a right comminuted, distal humerus fracture, intra-articular. Date of injury 09/10. I have independently reviewed the x-rays and CT scan of the right elbow, which demonstrates an intra-articular, displaced distal humerus fracture. I discussed with Areli Tran, patient's regarding the available treatment options, including open reduction internal fixation versus nonoperative management. We discussed that, given Mistcara Tran's declining mental status and inability to comply with postoperative instructions, that surgery is of significantly high risk. I'm concerned that his recurrent falls will result in a postoperative complication. I have shown his imaging and discussed patient care with my colleague who is also in agreement. We discussed with the family that, with nonoperative care, he will likely have a stiff elbow and that there is a chance that he may go on to fracture nonunion. The family understands these risks and has elected to proceed with nonoperative care. We will change his splint today to a long arm, well-padded splint. He will follow up in my clinic in 2 weeks for repeat assessment. All questions and concerns were addressed at bedside today. From an orthopedic standpoint, patient may be discharged, pending placement. We will continue to follow his progress on an outpatient basis.
[2018-09-14] MEDS: Ciprofloxacin 500 MG Tablet PO SCH ×2 (11:06→21:40)
[2018-09-14] MEDS: Carbidopa/Levodopa CR 50/200 MG Tablet PO SCH (11:07)
[2018-09-14] MEDS: lamoTRIgine 100 MG Tablet PO SCH (11:07)
[2018-09-14] MEDS: Potassium Chloride 10 MEQ ER Capsule PO SCH (11:13)
[2018-09-14] MEDS: Senna/Docusate Sodium 8.6/50 MG Tablet PO SCH ×2 (11:14→21:41)
[2018-09-14] MEDS: Furosemide 20 MG Tablet PO SCH (11:14)
[2018-09-14] MEDS: Multivitamin/Minerals Therapeutic Tablet PO SCH (11:14)
--- NOTE | 2018-09-14 16:48 | P.PN ---
Subjective Interval history: Follow up for Lewy body dementia, right elbow fracture, atrial fibrillation. Patient is currently resting in bed. Denies any acute concerns. Family members are somewhat upset regarding orthopedic surgery's decision not to pursue any surgical intervention. We discussed about hospice options. and family members would like to explore hospice options. Physical Exam Vital signs: Vital Signs 09/13/18 20:50 09/13/18 23:23 09/14/18 05:00 Temperature 98.0 F 98.0 F 97.6 F Pulse Rate 111 H 105 H 107 H Respiratory Rate 19 20 20 Blood Pressure 88/50 L 122/74 108/64 Pulse Oximetry 94 L 96 09/14/18 08:00 09/14/18 12:00 Temperature 97.6 F 98.2 F Pulse Rate 105 H 100 H Respiratory Rate 19 16 Blood Pressure 121/64 109/68 Pulse Oximetry 94 L 95 Intake & Output 09/13/18 09/14/18 09/14/18 18:59 06:59 18:59 Intake Total 120 / 120 240 / 240 Output Total 250 / 250 Balance 120 / 120 -10 10 Weight 103.8 kg Intake: Oral 120 / 120 240 / 240 Output: Urine 250 / 250 Other: # Incontinent Voids 3 2 Date of Last Bowel Movement 09/10/18 09/10/18 Narrative: GENERAL: Well-nourished well-developed elderly male in no acute distress. Awake and alert. Pleasantly confused. SKIN: Warm and dry. Right periorbital ecchymosis noted. HEAD: Normocephalic. EYES: Pupils equal and round. No scleral icterus. No injection or drainage. ENT: No nasal bleeding or discharge. Mucous membranes pink and moist. NECK: Trachea midline. CARDIOVASCULAR: Irregular rate and rhythm. No murmur auscultated. RESPIRATORY: No accessory muscle use. Clear to auscultation. Breath sounds equal bilaterally. GASTROINTESTINAL: Abdomen soft, non-tender, nondistended. Normoactive bowel sounds. MUSCULOSKELETAL: Extremities without clubbing, cyanosis, or edema. Right arm in splint, NV intact distally. NEUROLOGICAL: Awake and alert. Oriented to self. No obvious cranial nerve deficits. Motor grossly within normal limits except for decreased RUE secondary to injury. Normal speech. PSYCHIATRIC: Calm and cooperative. Results - Labs CBC & Chem 7: 09/09/18 12:10 09/11/18 17:06 Assessment and Plan - Plan 78-year-old white male with a history of Lewy body dementia, Parkinson's, chronic atrial fibrillation on anticoagulation presented back to the emergency room for recurrent falls after sustaining a previous right elbow fracture. Status post mechanical fall with right comminuted closed distal humerus fracture -Ortho consulted, appreciate assistance -continue splint and NWB RUE -continue pain management with bowel regimen -fall precautions -Orthopedic surgery recommends non-surgical management. Recurrent falls with a history of Parkinson's and dementia CT of the brain showed no acute changes. Discuss with the at bedside who desires a DO NOT RESUSCITATE status. Due to progression of these chronic disease, she would like to consider transition the patient to hospice care after surgical intervention. -PT/OT eval/tx -continue on Exelon patch and Sinemet Chronic atrial fibrillation Hx of CAD HTN -Currently not on any anticoagulation. May need to resume Xarelto. -continue on Isosorbide dinitrate. Recent UTI diagnosed in the [facility] completed Cipro course Acute kidney injury superimposed on chronic kidney disease stage IIthis is likely due to fall -will monitor BUN/creatinine. Cr improved today from 1.56 to 1.32 (previous creatinine in the system 1.10 09/02/18) -avoid nephrotoxins Hypokalemia K 3.2 -on daily repletion KCL 10meq daily, continue -po repletion ordered Overall, there is not much else to offer in the hospital. Family members are interested to talk to hospice. We will consult hospice. DNR. SCDs. Xarelto on hold for now. May need to resume. Depending on the discussion between hospice and family, we may discharge patient tomorrow 09/15/2018.
[2018-09-15] MEDS: Haloperidol Inj 5 MG/ML Ampul IV.PUSH PRN (01:33)
[2018-09-15] MEDS: lamoTRIgine 100 MG Tablet PO SCH (08:16)
[2018-09-15] MEDS: Senna/Docusate Sodium 8.6/50 MG Tablet PO SCH ×2 (08:16→21:57)
[2018-09-15] MEDS: Carbidopa/Levodopa CR 50/200 MG Tablet PO SCH (08:16)
[2018-09-15] MEDS: Potassium Chloride 10 MEQ ER Capsule PO SCH (08:16)
[2018-09-15] MEDS: QUEtiapine 100 MG Tablet PO SCH ×2 (08:16→21:57)
[2018-09-15] MEDS: Multivitamin/Minerals Therapeutic Tablet PO SCH (08:16)
[2018-09-15] MEDS: Ciprofloxacin 500 MG Tablet PO SCH ×2 (08:17→22:05)
[2018-09-15] MEDS: Furosemide 20 MG Tablet PO SCH (08:17)
--- NOTE | 2018-09-15 14:40 | P.PN ---
Subjective Interval history: Follow up for Lewy body dementia, right elbow fracture, atrial fibrillation. Patient is sitting in his chair, is at bedside. No acute concerns. They have discussed with hospice. Physical Exam Vital signs: Vital Signs 09/14/18 16:00 09/14/18 18:59 09/15/18 00:12 Temperature 97.8 F 98.1 F 97.4 F L Pulse Rate 100 H 94 H 113 H Respiratory Rate 18 18 18 Blood Pressure 121/67 126/88 107/60 Pulse Oximetry 94 L 95 96 09/15/18 05:00 09/15/18 08:00 09/15/18 12:00 Temperature 97.3 F L 97.2 F L 97.5 F L Pulse Rate 93 H 91 H 103 H Respiratory Rate 18 18 16 Blood Pressure 111/61 101/61 151/87 H Pulse Oximetry 95 98 93 L Intake & Output 09/14/18 09/15/18 09/15/18 18:59 06:59 18:59 Intake Total 150 / 150 480 / 480 Output Total 275 / 275 Balance -125 / -125 480 / 480 Weight 103.8 kg Intake: Oral 150 / 150 480 / 480 Output: Urine Amount (Catheter) 275 / 275 Condom 275 / 275 Other: # Incontinent Voids 1 Date of Last Bowel Movement 09/10/18 09/10/18 # Bowel Movements 0 Narrative: GENERAL: Well-nourished well-developed elderly male in no acute distress. Awake and alert. Pleasantly confused. SKIN: Warm and dry. Right periorbital ecchymosis noted. HEAD: Normocephalic. EYES: Pupils equal and round. No scleral icterus. No injection or drainage. ENT: No nasal bleeding or discharge. Mucous membranes pink and moist. NECK: Trachea midline. CARDIOVASCULAR: Irregular rate and rhythm. No murmur auscultated. RESPIRATORY: No accessory muscle use. Clear to auscultation. Breath sounds equal bilaterally. GASTROINTESTINAL: Abdomen soft, non-tender, nondistended. Normoactive bowel sounds. MUSCULOSKELETAL: Extremities without clubbing, cyanosis, or edema. Right arm in splint, NV intact distally. NEUROLOGICAL: Awake and alert. Oriented to self. No obvious cranial nerve deficits. Motor grossly within normal limits except for decreased RUE secondary to injury. Normal speech. PSYCHIATRIC: Calm and cooperative. - Urinary Catheter Management Condom Cath placed during this visit: no Indwelling Urethral Catheter Cath placed during this visit: yes Reason for continuing: Terminally ill/Comfort care Insertion date: 09/15/18 Insertion time: 15:20 Results - Labs CBC & Chem 7: 09/09/18 12:10 09/11/18 17:06 Assessment and Plan - Plan 78-year-old white male with a history of Lewy body dementia, Parkinson's, chronic atrial fibrillation on anticoagulation presented back to the emergency room for recurrent falls after sustaining a previous right elbow fracture. Status post mechanical fall with right comminuted closed distal humerus fracture -Ortho consulted, appreciate assistance -continue splint and NWB RUE -continue pain management with bowel regimen -fall precautions -Orthopedic surgery recommends non-surgical management. Recurrent falls with a history of Parkinson's and dementia CT of the brain showed no acute changes. Discuss with the at bedside who desires a DO NOT RESUSCITATE status. Due to progression of these chronic disease, she would like to consider transition the patient to hospice care after surgical intervention. -PT/OT eval/tx -continue on Exelon patch and Sinemet Chronic atrial fibrillation Hx of CAD HTN -Currently not on any anticoagulation. May need to resume Xarelto. -continue on Isosorbide dinitrate. Recent UTI diagnosed in the [facility] completed Cipro course Acute kidney injury superimposed on chronic kidney disease stage IIthis is likely due to fall -will monitor BUN/creatinine. Cr improved today from 1.56 to 1.32 (previous creatinine in the system 1.10 09/02/18) -avoid nephrotoxins Hypokalemia K 3.2 -on daily repletion KCL 10meq daily, continue -po repletion ordered DNR. SCDs. Xarelto on hold for now. 09/15/2018: Hospice team met with patient's family. They are looking at two facilities where patient can go under hospice.
[2018-09-16] MEDS: Potassium Chloride 10 MEQ ER Capsule PO SCH (09:37)
[2018-09-16] MEDS: Furosemide 20 MG Tablet PO SCH (09:38)
[2018-09-16] MEDS: Multivitamin/Minerals Therapeutic Tablet PO SCH (09:38)
[2018-09-16] MEDS: lamoTRIgine 100 MG Tablet PO SCH (09:38)
[2018-09-16] MEDS: Senna/Docusate Sodium 8.6/50 MG Tablet PO SCH ×2 (09:38→20:34)
[2018-09-16] MEDS: Ciprofloxacin 500 MG Tablet PO SCH ×2 (09:38→20:34)
[2018-09-16] MEDS: QUEtiapine 100 MG Tablet PO SCH ×2 (09:39→20:33)
[2018-09-16] MEDS: Carbidopa/Levodopa CR 50/200 MG Tablet PO SCH (09:39)
--- NOTE | 2018-09-16 22:12 | P.PN ---
Subjective Interval history: Follow up for Lewy body dementia, right elbow fracture, atrial fibrillation. Patient was seen in the AM. Resting in bed. Tries to say a few words, difficult to understand. Afebrile. Physical Exam Vital signs: Vital Signs 09/16/18 00:40 09/16/18 05:40 09/16/18 08:00 Temperature 97.6 F 97.5 F L 97.7 F Pulse Rate 68 75 97 H Respiratory Rate 17 20 16 Blood Pressure 105/68 119/73 113/71 Pulse Oximetry 95 93 L 92 L 09/16/18 12:00 09/16/18 16:10 09/16/18 19:55 Temperature 97.4 F L 97.5 F L 97.8 F Pulse Rate 100 H 101 H 104 H Respiratory Rate 17 20 20 Blood Pressure 112/75 120/77 101/78 Pulse Oximetry 96 90 L 90 L Intake & Output 09/16/18 09/16/18 09/17/18 06:59 18:59 06:59 Intake Total 360 / 360 Output Total 400 / 400 550 / 550 Balance -40 / -40 -550 / -550 Weight 104 kg Intake: Oral 360 / 360 Output: Urine Amount (Catheter) 400 / 400 550 / 550 Indwelling Urethral Catheter 400 / 400 550 / 550 - Urinary Catheter Management Condom Cath placed during this visit: no Indwelling Urethral Catheter Cath placed during this visit: yes Reason for continuing: Terminally ill/Comfort care Insertion date: 09/15/18 Insertion time: 15:20 Results - Labs CBC & Chem 7: 09/09/18 12:10 09/11/18 17:06 Assessment and Plan - Plan 78-year-old white male with a history of Lewy body dementia, Parkinson's, chronic atrial fibrillation on anticoagulation presented back to the emergency room for recurrent falls after sustaining a previous right elbow fracture. Status post mechanical fall with right comminuted closed distal humerus fracture -Ortho consulted, appreciate assistance -continue splint and NWB RUE -continue pain management with bowel regimen -fall precautions -Orthopedic surgery recommends non-surgical management. Recurrent falls with a history of Parkinson's and dementia CT of the brain showed no acute changes. Discuss with the at bedside who desires a DO NOT RESUSCITATE status. Due to progression of these chronic disease, she would like to consider transition the patient to hospice care after surgical intervention. -PT/OT eval/tx -continue on Exelon patch and Sinemet Chronic atrial fibrillation Hx of CAD HTN -Currently not on any anticoagulation. May need to resume Xarelto. -continue on Isosorbide dinitrate. Recent UTI diagnosed in the [facility] completed Cipro course Acute kidney injury superimposed on chronic kidney disease stage IIthis is likely due to fall -will monitor BUN/creatinine. Cr improved today from 1.56 to 1.32 (previous creatinine in the system 1.10 09/02/18) -avoid nephrotoxins Hypokalemia K 3.2 -on daily repletion KCL 10meq daily, continue -po repletion ordered DNR. SCDs. Xarelto on hold for now. 09/16/2018: Patient will likely be discharged to [facility] with hospice on 09/17/2018.
[2018-09-17 09:38] VITALS: BP 119/81; PULSE 112; RESP 20; TEMP 97.5; O2SAT 92
[2018-09-17] MEDS: Potassium Chloride 10 MEQ ER Capsule PO SCH (09:55)
[2018-09-17] MEDS: QUEtiapine 100 MG Tablet PO SCH (09:55)
[2018-09-17] MEDS: lamoTRIgine 100 MG Tablet PO SCH (09:55)
[2018-09-17] MEDS: Senna/Docusate Sodium 8.6/50 MG Tablet PO SCH (09:56)
[2018-09-17] MEDS: Multivitamin/Minerals Therapeutic Tablet PO SCH (09:56)
[2018-09-17] MEDS: Carbidopa/Levodopa CR 50/200 MG Tablet PO SCH (09:56)
[2018-09-17] MEDS: Furosemide 20 MG Tablet PO SCH (09:56)
[2018-09-17] MEDS: Ciprofloxacin 500 MG Tablet PO SCH (09:57)
--- NOTE | 2018-09-17 12:18 | P.DS ---
Date of admission: 09/09/18 17:22 Primary care physician: Deejay Mckeon MD Attending physician on discharge: Hung Winkler Anticipated date of discharge: 09/17/18 Brief History from admission: 78-year-old pleasant male with a history of Lewy body dementia, Parkinson's who is currently residing in a dementia base of the assisted-living facility we presented back to the emergency room after sustaining another fall last night and this morning when he was seen in the emergency room yesterday for right elbow fracture. He was referred to Dr. Galvan, orthopedic surgery, for an appointment tomorrow and likely surgery next . He has been on Xarelto for his chronic atrial fibrillation but has been off of this for the past 2 days after the fall. His had stated that the staff at the assisted living facility is unable to care for him due to these recurrent falls and therefore brought him back to the emergency room for evaluation. His stated that his Parkinson dementia has been progressing over the past few months. Patient currently is pleasantly confused and states that other than the right elbow pain he has no other pain at this time. No complaints of palpitations or chest pains. DS: Summary Hospital Course: 78-year-old white male with a history of Lewy body dementia, Parkinson's, chronic atrial fibrillation on anticoagulation presented back to the emergency room for recurrent falls after sustaining a previous right elbow fracture. Status post mechanical fall with right comminuted closed distal humerus fracture -Ortho consulted, appreciate assistance -continue splint and NWB RUE -continue pain management with bowel regimen -fall precautions -Orthopedic surgery recommends non-surgical management. Recurrent falls with a history of Parkinson's and dementia CT of the brain showed no acute changes. Discuss with the at bedside who desires a DO NOT RESUSCITATE status. Due to progression of these chronic disease, she would like to consider transition the patient to hospice care after surgical intervention. -PT/OT eval/tx -continue on Exelon patch and Sinemet Chronic atrial fibrillation Hx of CAD HTN -Currently not on any anticoagulation. May need to resume Xarelto. -continue on Isosorbide dinitrate. Recent UTI diagnosed in the [facility] completed Cipro course Acute kidney injury superimposed on chronic kidney disease stage IIthis is likely due to fall -will monitor BUN/creatinine. Cr improved today from 1.56 to 1.32 (previous creatinine in the system 1.10 09/02/18) -avoid nephrotoxins Hypokalemia K 3.2 -on daily repletion KCL 10meq daily, continue -po repletion ordered DNR. SCDsDorene Guerra Patient and family decided to go with hospice at [facility]. - Time Spent with Patient Total time spent providing and/or coordinating discharge services: Less than 30 minutes - Quality: VTE Deep Vein Thrombosis/Pulmonary Embolism Present on Admission: No Exam Vital signs: Vital Signs 09/16/18 16:10 09/16/18 19:55 09/16/18 20:20 Temperature 97.5 F L 97.8 F Pulse Rate 101 H 104 H Respiratory Rate 20 20 19 Blood Pressure 120/77 101/78 Pulse Oximetry 90 L 90 L 92 L 09/17/18 00:35 09/17/18 05:15 09/17/18 08:00 Temperature 98.5 F 99.5 F 97.5 F L Pulse Rate 98 H 107 H 112 H Respiratory Rate 20 22 20 Blood Pressure 117/75 119/75 119/81 Pulse Oximetry 94 L 95 92 L Intake & Output 09/16/18 09/17/18 09/17/18 18:59 06:59 18:59 Intake Total 240 / 240 Output Total 550 / 550 350 / 350 Balance -550 / -550 -110 / -110 Weight 104.1 kg Intake: Oral 240 / 240 Output: Urine Amount (Catheter) 550 / 550 350 / 350 Indwelling Urethral Catheter 550 / 550 350 / 350 Other: Date of Last Bowel Movement 09/10/18 09/10/18 Narrative: GENERAL: Well-nourished well-developed elderly male in no acute distress. Awake and alert. Pleasantly confused. SKIN: Warm and dry. Right periorbital ecchymosis noted. HEAD: Normocephalic. EYES: Pupils equal and round. No scleral icterus. No injection or drainage. ENT: No nasal bleeding or discharge. Mucous membranes pink and moist. NECK: Trachea midline. CARDIOVASCULAR: Irregular rate and rhythm. No murmur auscultated. RESPIRATORY: No accessory muscle use. Clear to auscultation. Breath sounds equal bilaterally. GASTROINTESTINAL: Abdomen soft, non-tender, nondistended. Normoactive bowel sounds. MUSCULOSKELETAL: Extremities without clubbing, cyanosis, or edema. Right arm in splint, NV intact distally. NEUROLOGICAL: Awake and alert. Oriented to self. No obvious cranial nerve deficits. Motor grossly within normal limits except for decreased RUE secondary to injury. Normal speech. PSYCHIATRIC: Calm and cooperative. Results Procedures completed during hospitalization: None. - Impressions ITS Impressions Cervical Spine CT 09/09/18 12:21 CONCLUSION: 1. No acute fracture or subluxation. 2. 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 3. Bulky carotid plaque. Head CT 09/09/18 12:21 CONCLUSION: 1. Stable senescent changes without acute intracranial abnormality. . Discharge Plan - Discharge Disposition Patient Disposition: Discharge to SNF - Discharge Condition Condition: Stable - Discharge Order Discharge Orders: Discharge Order (Routine); Ordered 09/17/18 Ordered By: Hung Winkler Orthopedic Clear for Discharge (Routine); Ordered 09/13/18 Ordered By: Omari Galvan - Discharge Details Anticipated Discharge Date: 09/17/18 Discharge Comment: D/C to SNF with hospice. - Physicians Team Primary Care Provider: Deejay Mckeon Attending Provider: Hung Winkler Other Providers: Felicia Smyth MD ; [facility] ; [facility]
== END 2018-09-17 11:01 | disposition hospice, inpatient (51) ==
LOC: NEPC 10:59 → NEDA 10:59 → N06 19:15 → NEDA 19:17 → N06 09-10 16:51
PROVIDERS: ADMIT Hospitalist; ATTEND Hospitalist